=== PATIENT | female | born 1990 | race Caucasian/White ===

== ENCOUNTER → 2024-01-13 15:37 | Outpatient (BNVA) | payer SELFPAY | PROVIDERS: Visit Provider Physician Assistant Medical | DX: Z77.21 Contact with and (suspected) exposure to potentially hazardous body fluids (principal) | CPT/HCPCS: 84450; 84460; 86706; 86803; 87389; 99203 ==

== ENCOUNTER → 2024-02-24 07:31 | Outpatient (BNVA) | payer OTHER, SELFPAY | DX: Z77.21 Contact with and (suspected) exposure to potentially hazardous body fluids (principal) | CPT/HCPCS: 84450; 84460; 86803; 87389; 99211 ==

== ENCOUNTER 2024-05-22 14:58 | Emergency (ER) | payer OTHER, SELFPAY ==
--- NOTE | ~2024-05-22 | CT_ITS ---
CLINICAL HISTORY: head injury, +Loc CT cervical spine without contrast Comparison: None Findings: Vertebral alignment is within normal limits. No significant degenerative change. No acute fractures or dislocations. No acute findings on limited view of the intracranial contents. No cervical fluid collections or masses. Lung apices are clear. IMPRESSION: No acute findings. This document has been electronically signed by: Betsy Hitchcock MD on 05/22/2024 16:40:51
--- NOTE | ~2024-05-22 | CT_ITS ---
CLINICAL HISTORY: head trauma, +LOC CT head without contrast Comparison: None Findings: No intra-axial mass, midline shift, hydrocephalus, or acute hemorrhage. No significant atrophy-like change or white matter disease. The visualized paranasal sinuses and mastoid air cells are normal. The orbits are within normal limits. No skull fracture. IMPRESSION: 1. No acute intracranial findings. This document has been electronically signed by: Betsy Hitchcock MD on 05/22/2024 16:36:56
[2024-05-22 15:12] VITALS: BP 120/65; PULSE 79; RESP 18; TEMP 36.6; O2SAT 98; BMI 19.5
--- NOTE | 2024-05-22 15:12 | ED.HEATRA ---
HPI - Head Injury General Chief complaint: Fall Stated complaint: Fall Hit Head Time Seen by Provider: 05/22/24 17:16 Source: patient and RN notes reviewed Mode of arrival: ambulatory Limitations: no limitations History of Present Illness ED Provider: Hawa Vance PA-C HPI Narrative: This is a [id number], with no known medical problems, who presents to the ER with complaints of head injury. Pt states that she slipped and fell and struck her back of her head. Patient reports that she is unsure if she lost consciousness. She reports a mild headache, and pain where she struck the ground. She denies any current vision changes, nausea, vomiting, dizziness, chest pain, shortness of breath, abdominal pain, nausea, vomiting or diarrhea. She was feeling well prior to the fall. Reports that this was a strict slip and fall on ice. Not on anticoagulation. MD Complaint: head injury, head pain and fall Onset (ago): hour(s) Mechanism of Injury: unsure Place: work Loss of Consciousness: unsure Location of injury: occipital Severity: moderate Quality: aching Radiation: none Other Injuries: none Associated symptoms: denies other symptoms Related Data Allergies Allergy/AdvReac Type Severity Reaction Status Date / Time No Known Allergies Allergy Verified 05/22/24 15:15 Review of Systems Review of Systems: Yes all other systems are reviewed and are negative Constitutional: Constitutional: Reports as per [facility] Social History Social History Advance Directives: No Advance Directives Information Provided: No Physical Exam Vital Signs: Vital Signs: Last Vital Signs Temp 98 F 05/22/24 17:22 Pulse 79 05/22/24 17:22 Resp 18 05/22/24 17:22 BP 120/65 05/22/24 17:22 Pulse Ox 98 05/22/24 17:22 O2 Del Method Room Air 05/22/24 17:22 BMI result Body Mass Index 19.5 Const: General: cooperative, comfortable and no acute distress Orientation/consciousness: patient oriented x3 Limitations: no limitations HEENT: Other: Tenderness palpation along the right occiput Head: Yes normal to inspection, Yes normocephalic, Yes atraumatic, No Armenta's sign, No palpable skull fracture and No raccoon eyes Ears: hearing grossly normal bilaterally and TM's normal bilaterally (No hemotympanum) General nose exam: Normal external nose present Face and sinus: Yes normal facial exam Mouth: Normal oral and palatal mucosa present, oropharynx normal and moist mucous membranes Throat: Yes posterior oropharynx normal Eyes: General: appearance normal, both eyes and all related structures Eyelids: Yes eyelids normal Conjunctivae: conjunctivae normal Sclerae: sclerae normal Pupils: Equal, round and reactive pupils present EOM: EOMs intact bilaterally Neck: Neck: Yes normal visual inspection, Yes full ROM and Yes no lymphadenopathy Lymphatic: no lymphadenopathy noted Chest: Chest palpation & inspection: normal inspection of the chest Resp: Effort & Inspection: normal respiratory effort and able to speak in complete sentences Cardio: Rate: regular rate Rhythm: regular rhythm GI: Inspection: Yes normal to inspection Skin: General skin exam: no rashes or lesions noted Trauma: no lacerations or abrasions Wounds: no wounds Neuro: General: patient oriented x3, moves all extremities and CN's II-XI intact bilaterally Cranial nerves: Yes CN's II-XII intact bilaterally, Yes Facial sensation intact/muscles of mastication intact, Yes Equal, round and reactive pupils present, Yes Bilaterally intact EOM present and Yes Nystagmus not present Cognition (Neuro): normal cognition Gait exam (Neuro): Normal gait present Motor exam (neuro): 5/5 motor strength present throughout and Pronator motor function not present Coordination: [id number]-[id number] test normal and eleg-qr-rfta test normal Extrem: General: Yes normal to inspection Right upper extremity: normal to inspection Left upper extremity: normal to inspection Right lower extremity: normal to inspection Left lower extremity: normal to inspection Medical Decision Making Medical Decision Making MDM Narrative: This is a 34-year-old female who presents emergency department with complaints of head injury status post slip and fall which occurred while at work today. She slipped and fell onto ice, struck her posterior head. She is unsure if she lost consciousness however states that this is not for a prolonged period of time if this happened. She states that she was able to get herself back up immediately after the fall. She reports mild headache, no changes in vision. On assessment, vital signs within normal limits. She is speaking full sentences under no acute distress. She is not on anticoagulation. She is neurologically intact with no focal deficits on examination, CT head and neck was obtained revealing no acute findings. Patient has been in the emergency department for approximately 3-1/2 hours, and she is feeling well, would like to be discharged if her scans are normal. I discussed with patient's strict return precautions. She was feeling well. Patient understands and agrees with plan. Patient stable for discharge Differential Diagnosis Differential Diagnoses: The differential diagnosis associated with the presentation includes ICH, cervical spine fracture, SDH, closed head injury Radiology Impression Discussion of test interpretation with radiology: I have reviewed the radiologist's reading. Radiologist Impression: [address] [address] [address] Scan Report Signed Patient: El Vega MR#: [id number] : 1990 Acct:[id number] Age/Sex: 34 / F ADM Date: 05/22/24 Loc: .ED Attending Dr: Ordering Physician: Hawa Vance Date of Service: 05/22/24 Procedure(s): CT cervical spine wo IV con Accession Number(s): [id number] cc: Hawa Vance; Physician,Unknown ~ Report Number: [id number]: Total DLP = 835.00 mGy-cm CLINICAL HISTORY: head injury, +Loc CT cervical spine without contrast Comparison: None Findings: Vertebral alignment is within normal limits. No significant degenerative change. No acute fractures or dislocations. No acute findings on limited view of the intracranial contents. No cervical fluid collections or masses. Lung apices are clear. IMPRESSION: No acute findings. This document has been electronically signed by: Betsy Hitchcock MD on 05/22/2024 16:40:51 Dictated By: Betsy Hitchcock MD Signed By: <Electronically signed by Betsy Hitchcock MD in [place]> [address] [address] [address] Scan Report Signed Patient: El Vega MR#: [id number] : 1990 Acct:[id number] Age/Sex: 34 / F ADM Date: 05/22/24 Loc: .ED Attending Dr: Ordering Physician: Hawa Vance Date of Service: 05/22/24 Procedure(s): CT head/brain wo IV con Accession Number(s): [id number] cc: Hawa Vance; Physician,Unknown ~ Report Number: [id number]: Total DLP = 0.00 mGy-cm CLINICAL HISTORY: head trauma, +LOC CT head without contrast Comparison: None Findings: No intra-axial mass, midline shift, hydrocephalus, or acute hemorrhage. No significant atrophy-like change or white matter disease. The visualized paranasal sinuses and mastoid air cells are normal. The orbits are within normal limits. No skull fracture. IMPRESSION: 1. No acute intracranial findings. This document has been electronically signed by: Betsy Hitchcock MD on 05/22/2024 16:36:56 Dictated By: Betsy Hitchcock MD Signed By: <Electronically signed by Betsy Hitchcock MD in [place]> Discharge Plan Discharge Clinical Impression: Head injury Qualifiers: Encounter type: initial encounter Qualified Code(s): S09.90XA - Unspecified injury of head, initial encounter Patient Disposition: Home, Self-Care Instructions: Head Injury (ED) Additional Instructions: You were seen in the emergency department after a slip and fall. We obtain CT scans of your head and your neck. Your CT scans were normal today. Please be advised that you may have intermittent headaches. You may take Tylenol as needed for pain. Please drink plenty of fluids get plenty of rest. Physical and mental rest can can help improve your symptoms sooner. If any new or worsening symptoms occur including but not limited to worsening headache, changes in vision, chest pain, shortness of breath, please seek emergent care. Interventions: ED Discharge Assessment Last Done: 05/22/24 17:22 Discharge Date/Time: 05/22/24 17:22 Print Language: [place]
[2024-05-22 17:22] VITALS: BP 120/65; PULSE 79; RESP 18; TEMP 36.6; O2SAT 98
== END 2024-05-22 17:22 | disposition home or self-care (01) ==
PROVIDERS: Emergency Provider Emergency Medicine
DX: S09.90XA Unspecified injury of head, initial encounter (principal); M54.2 Cervicalgia; R51.9 Headache, unspecified; W01.10XA Fall on same level from slipping, tripping and stumbling with subsequent striking against unspecified object, initial encounter; Y93.9 Activity, unspecified; Y92.009 Unspecified place in unspecified non-institutional (private) residence as the place of occurrence of the external cause; Y99.8 Other external cause status
CPT/HCPCS: 70450; 72125; 99282; 99284

== ENCOUNTER → 2024-05-22 15:16 | Outpatient (BNV) | payer OTHER, SELFPAY | PROVIDERS: Visit Provider Radiology Diagnostic Radiology | DX: R51.9 Headache, unspecified (principal); W01.198A Fall on same level from slipping, tripping and stumbling with subsequent striking against other object, initial encounter; Z04.2 Encounter for examination and observation following work accident | CPT/HCPCS: 70450; 72125 ==